=== PATIENT | male | born 1955 | race Caucasian/White ===

== ENCOUNTER 2021-03-03 00:46 | Emergency (ER) | payer MEDICARE ==
[~2021-03-03 00:46] MED LIST: ACCUPRIL40 MG PO; ASPIR 8181 MG PO; ATROVASTATIN PO; BRILINTA 90 MG90 MG PO; CLOPIDOGREL75 MG PO; COREG 3.125M3.125 MG PO; EFFIENT10 MG PO; KLOR-CON M1010 MEQ PO; LASIX40 MG PO; LEVOFLOXACIN250 MG PO; LEVOTHYROXINE25 MCG PO; LIPITOR TAB 2020 MG PO; LISINOPRIL40 MG PO; LISINOPRIL5 MG PO; MAGNESIUM; MEDROL DOSEPAK 24 MG PO; MIRALAX17 GM PO; NORVASC 5 MG TAB5 MG PO; NORVASC10 MG PO; PLAVIX 75 MG TA75 MG PO; PROTONIX40 MG PO; RANEXA1000 MG PO; TOPROL XL50 MG PO; TYLENOL W/CODEIN1 E1 PO
[2021-03-03 01:27] LABS: HEMOGLOBIN 13.4 gm/dl (14.0-17.5); RED BLOOD COUNT 4.11 M/UL (4.20-5.50); WHITE BLOOD COUNT 12.7 K/UL (4.5-11.0)
== END 2021-03-03 01:26 | disposition expired ==
LOC: ER1 00:46
PROVIDERS: Family Medicine
DX: I95.9 Hypotension, unspecified (principal); E66.9 Obesity, unspecified
CPT/HCPCS: 36600; 71045; 80053; 82550; 82553; 82803; 83874; 84484; 85025; 93005; 99285; J0171; J0282; J0461